=== PATIENT | female | born 1955 | race Caucasian/White ===

== ENCOUNTER 2018-05-24 13:32 | Emergency (ER) | payer OTHER ==
[2018-05-24] MEDS ORDERED: LEVO50TA5 PO (13:57)
[2018-05-24] MEDS ORDERED: SERT-138 PO (13:57)
[2018-05-24] MEDS ORDERED: ACYC400T PO (13:57)
[2018-05-24] MEDS ORDERED: D32000TA PO (13:57)
[2018-05-24] MEDS ORDERED: SIMV20TA2 PO (13:57)
[2018-05-24] MEDS ORDERED: METF-877 PO (13:57)
[2018-05-24] MEDS ORDERED: TOUJ1.2I SC (13:57)
[2018-05-24] MEDS ORDERED: MIDO2.5T PO (13:58)
[2018-05-24 14:24] LABS: BASO % 0.5 % (0.0-1.0); EOS # 0.2 10^3/uL (0.0-0.50); HEMATOCRIT 40.2 % (36.0-47.0); HEMOGLOBIN 13.3 g/dl (12.0-15.5); LYMPH # 1.7 10^3/uL (1.5-4.5); MEAN CORPUSCULAR HGB CONC 33.1 g/dl (32.0-36.5); MEAN CORPUSCULAR VOLUME 90.7 fl (80.0-96.0); MONO # 0.3 10^3/uL (0.0-0.8); MONO % 3.7 % (0.0-5.0); NEUTROPHILS # 6.4 10^3/uL (1.8-7.7); NEUTROPHILS % 73.5 % (36.0-66.0); PLATELET COUNT, AUTOMATED 242 10^3/uL (150-450); RED BLOOD COUNT 4.43 10^6/uL (4.00-5.40); WHITE BLOOD COUNT 8.7 10^3/uL (4.0-10.0)
[2018-05-24 14:38] LABS: ALT/SGPT 14 U/L (12-78); BILIRUBIN,DIRECT < 0.1 MG/DL (0.0-0.2); BILIRUBIN,TOTAL 0.3 MG/DL (0.2-1.0); BLOOD UREA NITROGEN 10 MG/DL (7-18); CALCIUM LEVEL 8.2 MG/DL (8.8-10.2); CARBON DIOXIDE LEVEL 26 MEQ/L (21-32); CHLORIDE LEVEL 98 MEQ/L (98-107); CK-MB VALUE MASS < 1.0 NG/ML (<3.6); CPK CREATINE PHOSPHOKINASE 40 U/L (26-192); CREATININE FOR GFR 0.99 MG/DL (0.55-1.30); GLOMERULAR FILTRATION RATE > 60.0 (>45); GLUCOSE, FASTING 472 MG/DL (70-100); SODIUM LEVEL 132 MEQ/L (136-145); TOTAL PROTEIN 6.8 GM/DL (6.4-8.2); TROPONIN I < 0.02 NG/ML (< 0.10)
[2018-05-24] MEDS ORDERED: NS 1,000 ML IV ONE (15:30)
[2018-05-24] MEDS ORDERED: MIDODRINE 5 MG TAB PO ONE (17:15)
[2018-05-24] MEDS ORDERED: LANTINJ4 SC (19:16)
[2018-05-24] MEDS ORDERED: LEVEMIR (INSULIN DETEMIR) 1 UNITS/0.01ML SC ONE (19:30)
[2018-05-24 19:47] VITALS: BP 156/82
--- NOTE | 2018-05-25 21:53 | ECGEPIP ---
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
== END 2018-05-24 19:47 | disposition home or self-care (01) ==
LOC: M ED 13:32
DX: E11.65 Type 2 diabetes mellitus with hyperglycemia (principal); I95.1 Orthostatic hypotension; R00.1 Bradycardia, unspecified; E55.9 Vitamin D deficiency, unspecified; E03.9 Hypothyroidism, unspecified; I10 Essential (primary) hypertension; E78.00 Pure hypercholesterolemia, unspecified; F32.9 Major depressive disorder, single episode, unspecified; F41.9 Anxiety disorder, unspecified; Z87.891 Personal history of nicotine dependence; Z79.84 Long term (current) use of oral hypoglycemic drugs; Z79.899 Other long term (current) drug therapy; Z88.2 Allergy status to sulfonamides

== ENCOUNTER 2019-02-08 13:56 | Inpatient (IN) | payer OTHER ==
[~2019-02-08] VITALS: Ht 160 cm; Wt 106.4 kg
[~2019-02-08 13:56] MED LIST: ACYC400T PO; D32000TA PO; LANTINJ4 SC; LEVO50TA5 PO; METF-877 PO; MIDO2.5T PO; SERT-138 PO; SIMV20TA22 PO; TOUJ1.2I SC
[2019-02-08] MEDS ORDERED: PARO20TA3 PO (14:19)
[2019-02-08] MEDS ORDERED: BASA100I SC (14:19)
[2019-02-08] MEDS ORDERED: NS 1,000 ML IV SCH (14:30)
--- NOTE | 2019-02-08 14:39 | REP ---
CT brain: 02/08/2019. Indication: Stroke. Comparison: None. Technique: Unenhanced axial CT images of the brain were obtained from skull base to vertex. Findings: There is no acute intracranial hemorrhage, acute cortical infarction, mass effect or hydrocephalous. Calcified vessel is noted within the deep right sylvian fissure. Mild diffuse volume loss is present. Patchy areas of cerebral hemisphere white matter hypoattenuation are present most consistent with chronic small vessel disease. Impression: No acute intracranial process. Sequelae of chronic microangiopathic ischemic disease and mild volume loss. Electronically Signed by Driss Galeano DO 02/08/2019 02:31 P
[2019-02-08 14:40] LABS: BASO % 0.3 % (0.0-1.0); EOS # 0.1 10^3/uL (0.0-0.5); EOS % 1.4 % (0.0-3.0); HEMATOCRIT 38.5 % (36.0-47.0); HEMOGLOBIN 12.4 g/dl (12.0-15.5); LYMPH % 22.9 % (24.0-44.0); MEAN CORPUSCULAR HEMOGLOBIN 29.5 pg (27.0-33.0); MEAN CORPUSCULAR HGB CONC 32.2 g/dl (32.0-36.5); MEAN CORPUSCULAR VOLUME 91.7 fl (80.0-96.0); MONO # 0.4 10^3/uL (0.0-0.8); MONO % 4.6 % (0.0-5.0); NEUTROPHILS # 6.2 10^3/uL (1.5-8.5); NEUTROPHILS % 70.6 % (36.0-66.0); PLATELET COUNT, AUTOMATED 281 10^3/uL (150-450); WHITE BLOOD COUNT 8.8 10^3/uL (4.0-10.0)
[2019-02-08] MEDS ORDERED: NS 1,000 ML IV ONE (14:45)
[2019-02-08] MEDS ORDERED: ATORVASTATIN 20 MG TAB PO ONE (14:45)
[2019-02-08] MEDS ORDERED: ASPIRIN 325 MG TAB PO ONE (14:45)
[2019-02-08 14:54] LABS: INR 1.1; PROTHROMBIN TIME 13.9 SECONDS (11.8-14.0)
[2019-02-08 15:23] LABS: ACETAMINOPHEN LEVEL < 2.0 UG/ML (10.0-30.0); ALBUMIN 3.1 GM/DL (3.2-5.2); ALT/SGPT 11 U/L (12-78); BILIRUBIN,DIRECT 0.1 MG/DL (0.0-0.2); BILIRUBIN,TOTAL 0.3 MG/DL (0.2-1.0); BLOOD UREA NITROGEN 17 MG/DL (7-18); CALCIUM LEVEL 8.6 MG/DL (8.8-10.2); CARBON DIOXIDE LEVEL 28 MEQ/L (21-32); CHLORIDE LEVEL 105 MEQ/L (98-107); CK-MB VALUE MASS < 1.0 NG/ML (<3.6); CPK CREATINE PHOSPHOKINASE 42 U/L (26-192); CREATININE FOR GFR 0.95 MG/DL (0.55-1.30); ETHYL ALCOHOL (ETHANOL) 0.006 % (0.000-0.010); GLOMERULAR FILTRATION RATE > 60.0 (>45); GLUCOSE, FASTING 160 MG/DL (70-100); MB/CK RELATIVE INDEX 2.38 (< OR =4); POTASSIUM SERUM 4.1 MEQ/L (3.5-5.1); SALICYLATE LEVEL < 1.7 MG/DL (5.0-30.0); SODIUM LEVEL 139 MEQ/L (136-145); TROPONIN I < 0.02 NG/ML (< 0.10)
--- NOTE | 2019-02-08 15:32 | REP ---
Single view chest: 02/08/2019. Indication: Altered mental status. Comparison: None. Findings: The lungs are clear. There is no pleural effusion or pneumothorax. The cardiac silhouette is at the upper limits of normal in size. Impression: No acute cardiopulmonary process. Electronically Signed by Driss Galeano DO 02/08/2019 03:22 P
[2019-02-08] MEDS ORDERED: ACETAMINOPHEN TAB 650MG DOSE (2X325MG) PO PRN (16:00)
[2019-02-08] MEDS ORDERED: DEXTROSE 50% 50 ML SYRINGE IV PRN (16:00)
[2019-02-08] MEDS ORDERED: GLUCAGON FOR INJ 1 MG VIAL (J1610) SC PRN (16:00)
[2019-02-08] MEDS ORDERED: GLUCOSE 4 GM CHEW TABLET PO PRN (16:00)
[2019-02-08] MEDS ORDERED: ADME100I2 SC (16:02)
--- NOTE | 2019-02-08 16:15 | HPEPDOC ---
General Date of Admission Feb 08, 2019 at 15:54 Date of Service: Feb 08, 2019 Chief Complaint The patient is a 63-year-old female Who presented to the emergency room with left-sided arm weakness and left facial droop History of Present Illness Patient is a 63-year-old female with a PMHx of IDDM2, DLP, Hypothyroidism, Hx of Asthma, Depression and GERD who presented to the emergency room with complaints of left arm weakness. Patient with that at 12:15 this afternoon, she was taking her friend to the hospital for an knee evaluation. Upon getting into the vehicle. Patient noted that her left arm was weaker and she had difficulty putting on seatbelt. Patient reported that she may have experienced some slurring speech, or change in her voice. However, she denied any difficulty with swallowing. She also denied any visual problems. Throughout the dry patients friend had noticed a left-sided facial droop. Upon arrival to destination patient had left leg weakness and EMS was called for further systems. Upon arrival to the emergency room at 3 PM telemedicine was contacted and robin carmichael already began to have improvement of her symptoms. Telemedicine with Dr. Nighat ROBERSON [facility] had recommended against TPA given that the patients symptoms were already resolving / near resolved. Hospital services contacted at 3:30 PM for further evaluation and treatment. Currently, patient reports a mild headache, but she denies nausea, vomiting, chest pain, shortness of breath, palpitations, abdominal pain, constipation, diarrhea, urinary discomfort or fevers and chills within the last 2 weeks. Patient reports that her appetite is normal, but does report a 5 pound weight loss that she attributes to increased activity / a busy lifestyle recently. Patient denies any prior history of stroke. There was concern for an GA in 2017, but a subsequent cardiac cath that was completed, did not reveal any evidence of infarction Home Medications Scheduled Insulin Glargine,Hum.rec.anlog (Basaglar Kwikpen U-100) 100 Unit/1 Ml Insuln.pen, 50 UNITS SC DAILY, (Reported) Levothyroxine Sodium (Levothyroxine Sodium) 50 Mcg Tab, 50 MCG PO DAILY, (Reported) Paroxetine HCl (Paroxetine HCl) 20 Mg Tablet, 20 M PO DAILY, (Reported) Simvastatin (Simvastatin) 20 Mg Tab, 1 TAB PO QPM, (Reported) Miscellaneous Medications Insulin Lispro (Admelog Solostar) 100 Unit/1 Ml Insuln.pen, 100 UNIT SC, (Repor austen) sliding scale Allergies Coded Allergies: Sulfa (Sulfonamide Antibiotics) (Verified Adverse Reaction, Mild, Headache, 05/24/18) Past Medical History Medical History IDDM2, DLP, Hypothyroidism, Hx of Asthma, Depression and GERD Surgical History Appendectomy 1965 Adhesion removal, 1990 Emergency 1982 Umbilical hernia repair 2 Right tibia-fibula ORIF Right ankle fracture ORIF Family History - Mother with a history of breast cancer and TIA - Father with a history of coronary artery disease Social History - Denies the use of illicit drugs; patient reports social alcohol use; patient quit smoking 3 years ago but was a smoker of 47 years at 1 PPD - Denies recent travel or sick contacts - Lives with her ex- - 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; 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 Review of Systems Other systems 10 point review of systems complete, all negative otherwise stated in HPI Vital Signs - Vitals: BP 144/65, HR 53, RR 16, Sat 98%RA, Temp 97.8F - General: Lying in bed, No acute distress, Speaking in full sentences, AAOx3 - HEENT: NC, AT, PERRLA, EOMI - CVS: RRR, +S1S2 - Lungs: Fair air entry bilaterally, No appreciable wheezing / rales / rhonchi - Abdomen: Soft, Non-distended, Non-tender - Extremities: No lower extremity edema, No calf tenderness - Neuro: 5/5 muscle strength at upper / lower extremities bilaterally, sensation symmetric bilaterally, no pronator drift appreciated, CN 2-12 grossly intact - Skin: No visible rashes Laboratory Data Labs 24H Laboratory Tests 2 02/08/19 14:23: Immature Granulocyte % (Auto) 0.2, Neutrophils (%) (Auto) 70.6H, Lymphocytes (%) (Auto) 22.9L, Monocytes (%) (Auto) 4.6, Eosinophils (%) (Auto) 1.4, Basophils (%) (Auto) 0.3, Neutrophils # (Auto) 6.2, Lymphocytes # (Auto) 2.0, Monocytes # (Auto) 0.4, Eosinophils # (Auto) 0.1, Basophils # (Auto) 0.0, Nucleated Red Blood Cells % (auto) 0.0, Prothrombin Time 13.9, Prothromb Time International Ratio 1.10, Activated Partial Thromboplast Time 27.0, Anion Gap 6L, Glomerular Filtration Rate > 60.0, Calcium Level 8.6L, Total Bilirubin 0.3, Direct Bilirubin 0.1, Aspartate Amino Transf (AST/SGOT) 11, Alanine Aminotransferase (ALT/SGPT) 11L, Alkaline Phosphatase 98, Total Creatine Kinase 42, Creatine Kinase MB < 1.0, Creatine Kinase MB Relative Index 2.38, Troponin I < 0.02, Total Protein 7.0, Albumin 3.1L, Albumin/Globulin Ratio 0.79L, Thyroid Stimulating Hormone (TSH) 1.040, Salicylates Level < 1.7L, Acetaminophen Level < 2.0L, Ethyl Alcohol Level 0.006 CBC/BMP Laboratory Tests 02/08/19 14:23 Plan / VTE VTE Prophylaxis Ordered?: Yes Plan Plan Left arm weakness and left facial droop - likely 2/2 TIA, less likely 2/2 CVA - Patient presented to the emergency room with complaints of left facial droop, left arm weakness and some degree of left leg weakness - Upon evaluation of the patient at 3:30 PM patient had resolution of her symptoms; strength appears symmetric and 5 out of 5 upper and lower extremities bilaterally and no facial droop is appreciated - Telemedicine with [facility]. Dr. Disla was completed at 3 PM - recommended against TPA given resolution of her symptoms - CT head 02/08: No acute intracranial process. Sequelae of chronic mi croangiopathic ischemic disease and mild volume loss. - Will get MRI / MRA / US carotid / ECHO / Lipid profile / Telemetry monitoring / Neuro checks - s/p ASA 325 and Atorvastatin 20 in ER - Will c/w ASA 81 daily and Atorvastatin 40 - Will defer neurologic consultation until imaging results IDDM2 - Patient reports that as an outpatient, she has been compliant with her medications and diet - She notes that her blood sugars have been relatively well-controlled - c/w ISS and Levemir for better glycemic coverage DLP - Will check lipid panel - c/w Atorvastatin 40; will adjust based on the above Hypothyroidism - c/w Levothyroxine Depression - c/w Paroxetine Hx of Asthma - CXR 02/08: No acute cardiopulmonary process. GERD - Patient reports that she does not take omeprazole for several months - Will resume Omeprazole now DVT prophylaxis - Will start Heparin TOSHIA PICKETT MD Feb 08, 2019 16:15
--- NOTE | 2019-02-08 18:19 | REP ---
MRI brain: 02/08/2019. Indication: Stroke. Comparison: None. Technique: Multiplanar short and long TR sequences of the brain were performed without IV Gadolinium. Findings: There are a few small foci of restricted diffusion within the right temporal parietal region without mass effect or hemorrhage. There are scattered small foci of elevated T2 signal throughout the cerebral hemisphere white matter and mid solis most consistent with chronic small vessel disease. Mild diffuse volume loss is present. The midline structures, and craniocervical junction are unremarkable with the exception of a partially empty sella which is nonspecific. The large intracranial flow voids are unremarkable. Impression: Multiple small punctate acute right temporal parietal / MCA infarctions without mass effect or hemorrhage. Electronically Signed by Driss Galeano DO 02/08/2019 06:11 P
--- NOTE | 2019-02-08 18:21 | REP ---
Intracranial MRA: 02/08/2019. Indication: Stroke. Comparison: None. Technique: 3-D [id number] imaging of the intracranial vessels were performed with rotational 3-D images provided. Findings: There is no intracranial high-grade stenosis, vessel occlusion, aneurysm or AVM. Impression: No intracranial high-grade stenosis or vessel occlusion. Electronically Signed by Driss Galeano DO 02/08/2019 06:12 P
[2019-02-08 18:22] VITALS: BP 146/70; PULSE 54
[2019-02-08] MEDS: HumaLOG INSULIN (NovoLOG) PER UNIT SC SCH ×2 (19:00→21:00)
[2019-02-08 20:00] VITALS: BP 146/66
[2019-02-08] MEDS: HEPARIN SOD (PORCINE) 5000 UNITS/ML VIAL SC SCH (21:45)
[2019-02-09] VITALS: BP 115/56
[2019-02-09 04:00] VITALS: BP 126/68
[2019-02-09] MEDS: HEPARIN SOD (PORCINE) 5000 UNITS/ML VIAL SC SCH ×3 (06:00→21:46)
[2019-02-09] MEDS: LEVOTHYROXINE 50MCG TABLET (0.05MG) PO SCH (07:08)
[2019-02-09] MEDS: HumaLOG INSULIN (NovoLOG) PER UNIT SC SCH ×4 (07:30→20:37)
[2019-02-09 07:35] LABS: BASO % 0.3 % (0.0-1.0); EOS # 0.2 10^3/uL (0.0-0.5); EOS % 2.5 % (0.0-3.0); HEMATOCRIT 40.4 % (36.0-47.0); HEMOGLOBIN 12.6 g/dl (12.0-15.5); LYMPH # 2.5 10^3/uL (1.5-5.0); MEAN CORPUSCULAR HEMOGLOBIN 29.3 pg (27.0-33.0); MEAN CORPUSCULAR HGB CONC 31.2 g/dl (32.0-36.5); MONO # 0.3 10^3/uL (0.0-0.8); MONO % 3.9 % (0.0-5.0); NEUTROPHILS # 5.7 10^3/uL (1.5-8.5); PLATELET COUNT, AUTOMATED 283 10^3/uL (150-450); WHITE BLOOD COUNT 8.8 10^3/uL (4.0-10.0)
[2019-02-09 08:00] VITALS: BP 135/83
[2019-02-09 08:02] LABS: BLOOD UREA NITROGEN 12 MG/DL (7-18); CALCIUM LEVEL 8.4 MG/DL (8.8-10.2); CARBON DIOXIDE LEVEL 28 MEQ/L (21-32); CHLORIDE LEVEL 108 MEQ/L (98-107); CHOLESTEROL LEVEL 156 MG/DL (<200); CHOLESTEROL RISK RATIO 4.588 (<5); CREATININE FOR GFR 0.82 MG/DL (0.55-1.30); GLOMERULAR FILTRATION RATE > 60.0 (>45); GLUCOSE, FASTING 83 MG/DL (70-100); HDL CHOLESTEROL 34 MG/DL (>40); LDL CHOLESTEROL 103 MG/DL (<100); MAGNESIUM LEVEL 2.3 MG/DL (1.8-2.4); NON-HDL-C 122 MG/DL; POTASSIUM SERUM 3.8 MEQ/L (3.5-5.1); SODIUM LEVEL 140 MEQ/L (136-145); TRIGLYCERIDES LEVEL 97 MG/DL (<150)
--- NOTE | 2019-02-09 08:04 | ECGEPIP ---
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
[2019-02-09] MEDS: OMEPRAZOLE 20 MG CAP PO SCH (08:16)
[2019-02-09] MEDS: PARoxetine 20 MG TAB PO SCH (08:16)
[2019-02-09] MEDS: ATORVASTATIN 20 MG TAB PO SCH (08:16)
[2019-02-09] MEDS: ASPIRIN 81 MG CHEW TABLET PO SCH (08:16)
[2019-02-09] MEDS: NS 1,000 ML IV SCH ×2 (08:24→20:37)
[2019-02-09] MEDS ORDERED: LEVEMIR (INSULIN DETEMIR) 1 UNITS/0.01ML SC SCH (09:00)
--- NOTE | 2019-02-09 09:45 | REP ---
DUPLEX CAROTID SONOGRAPHY: HISTORY: TIA/CVA. FINDINGS: Antegrade flow was observed in both vertebral arteries. RIGHT CAROTID: Right common carotid artery shows minimal diffuse intimal thickening. There is mild mixed plaquing in the bulb and proximal ICA on two-dimensional scanning. Color flow and spectral Doppler interrogation demonstrate increased velocity with systole in the external carotid artery and very slightly elevated systolic velocity in the ICA. Velocity Chart Right Carotid: PSV EDV Right CCA 75 cm/s Right ICA 133 cm/s 38 cm/s Right ECA 247 cm/s Right ICA/CCA ratio 1.8. IMPRESSION: 0 to 50% category narrowing by Doppler velocity criteria, probably near the upper end of this range. LEFT CAROTID: Left common carotid artery is unremarkable. There is mixed plaquing in the bulb and proximal ICA. Color flow and spectral Doppler interrogation are unremarkable on the left. Velocity Chart Left Carotid: PSV EDV Left CCA 85 cm/s Left ICA 89 cm/s 25 cm/s Left ECA 108 cm/s Left ICA/CCA ratio normal 1.05 IMPRESSION: Less than 50% category narrowing in the ICA on the left side. Electronically Signed by Tomás Haskins MD 02/09/2019 05:49 P
[2019-02-09 12:00] VITALS: BP 137/63
--- NOTE | 2019-02-09 13:48 | IPNPDOC ---
Text Note Date of Service The patient was seen on 02/09/19. NOTE Subjective: Patient is a 63-year-old female with a PMHx of IDDM2, DLP, Hypothyroidism, Hx of Asthma, Depression and GERD who presented to the emergency room with complaints of left arm weakness. Patient was admitted to hospitalist service for suspected stroke/TIA. No TPA was given. After consultation with telemedicine Dr. Disla had recommended against it - given symptom resolution. Patient was seen and examined at the bedside. . Currently, patient reports that her symptoms have resolved and denies any sensory deficit or weakness of the left side of her body. She denies chest pain, shortness of breath or palpitations. Denies nausea, vomiting, abdominal pain or diarrhea. Objective: Vitals (See below) General: Lying in bed, no acute distress, comfortable, AAOx3 HEENT: NC, AT CVS: RRR, +S1S2 Lungs: Fair air entry b/l, no appreciable wheezing / rhonchi / rales Abdomen: Soft, ND, NT Extremities: - Edema, - Calf tenderness Neuro: Strength of 5/5 at upper / lower extremities bilaterally Assessment and plan: Left arm weakness and left facial droop - likely 2/2 TIA, less likely 2/2 CVA - Patient presented to the emergency room with complaints of left facial droop, left arm weakness and some degree of left leg weakness - Upon evaluation of the patient at 3:30 PM patient had resolution of her symptoms; strength appears symmetric and 5 out of 5 upper and lower extremities bilaterally and no facial droop is appreciated - Yesterday evening at around 6 PM patient had recurrence of her symptoms; however patient was already outside of the TPA window - Telemedicine with [facility]. Dr. Disla was completed at 3 PM - recommended against TPA given resolution of her symptoms - CT head 02/08: No acute intracranial process. Sequelae of chronic microangiopathic ischemic disease and mild volume loss. - MRI Head 02/08: Multiple small punctate acute right temporal parietal / MCA infarctions without mass effect or hemorrhage. - MRA head 02/08: No intracranial high-grade stenosis or vessel occlusion. - Carotid duplex US 02/08: Less than 50% category narrowing in the ICA on the left side; 0 to 50% category narrowing by Doppler velocity criteria, probably near the upper end of this range on right side. - ECHO pending - c/w Telemetry monitoring / Neuro checks - s/p ASA 325 and Atorvastatin 20 in ER - c/w ASA 81 daily and Atorvastatin 40 - Neurology has been called on consultation; appreciate their input IDDM2 - Patient reports that as an outpatient, she has been compliant with her medications and diet - She notes that her blood sugars have been relatively well-controlled - c/w ISS and Levemir for better glycemic coverage DLP - Lipid panel noted - c/w Atorvastatin Hypothyroidism - c/w Levothyroxine Depression - c/w Paroxetine Hx of Asthma - CXR 02/08: No acute cardiopulmonary process. GERD - Patient reports that she does not take omeprazole for several months - c/w Omeprazole now DVT prophylaxis - c/w Heparin VS,Fishbone, I+O VS, Fishbone, I+O Laboratory Tests 02/08/19 14:23 02/09/19 07:15 Vital Signs Date Time Temp Pulse Resp B/P (MAP) Pulse Ox O2 Delivery O2 Flow Rate FiO2 02/09/19 08:00 96.6 50 17 135/83 (100) 93 Room Air I&O- Last 24 Hours up to 6 AM 02/09/19 06:00 Intake Total 1840 ml Output Total 525 ml Balance 1315 ml TOSHIA PICKETT MD Feb 09, 2019 13:47
[2019-02-09 16:00] VITALS: BP 158/69
--- NOTE | 2019-02-09 17:14 | ECGEPIP ---
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
[2019-02-09 20:00] VITALS: BP 120/60
--- NOTE | 2019-02-09 21:52 | ECHO ---
DATE OF PROCEDURE: 02/09/2019 Date of : 1955 Age: 63 REFERRING PHYSICIAN: King Ceron MD PATIENT LOCATION: Room 3229 REASON FOR EXAM: Transient ischemic attack (TIA). 2D MEASUREMENTS: IVS: 1.1 cm LV: 4.4 cm LVPW: 1.1 cm LA: 3.1 cm Aorta: 2.6 IVC: 1.5 cm DOPPLER MEASUREMENTS: Peak velocity across the aortic valve: 1.7 m/s Peak velocity across the LVOT: 0.9 m/s Mitral E: 0.82, Mitral A: 0.69 with a ratio of 1.2 Maximum tricuspid valve velocity: 2.4 m/s 2D COMMENTS: 1. Normal left ventricular size, wall thickness, and normal global left ventricular systolic function. The estimated left ventricular systolic ejection fraction is 60-65%. 2. Normal left atrium. Normal right atrium and right ventricle. 3. The atrial septum appeared to be normal without evidence of defect or shunt. 4. Normal aortic root. 5. Trace to small pericardial effusion noted around the heart, no evidence of cardiac tamponade. 6. Mildly calcified aortic valve with normal leaflet excursion. Minimally calcified mitral annulus with normal anterior mitral valve leaflet motion. Normal tricuspid valve and pulmonic valve. The proximal pulmonary artery branches were not well visualized. 7. The inferior vena cava was normal in size, central venous pressure is most likely normal. DOPPLER: Only mild tricuspid regurgitation detected. The calculated pulmonary artery systolic pressure varies between 30-40 mmHg. Assessment of the left ventricular diastolic function appeared to be normal. IMPRESSION 1. Normal global left ventricular systolic and diastolic function. 2. Aortic valve sclerosis with trivial aortic stenosis, but no aortic regurgitation. 3. Mild tricuspid regurgitation with mild pulmonary hypertension. 4. Trace to small pericardial effusion, no evidence of cardiac tamponade.
[2019-02-10 04:00] VITALS: BP 138/68
[2019-02-10] MEDS: LEVOTHYROXINE 50MCG TABLET (0.05MG) PO SCH (05:36)
[2019-02-10] MEDS: HEPARIN SOD (PORCINE) 5000 UNITS/ML VIAL SC SCH (05:36)
[2019-02-10 05:59] LABS: BASO % 0.3 % (0.0-1.0); EOS # 0.2 10^3/uL (0.0-0.5); EOS % 2.7 % (0.0-3.0); HEMOGLOBIN 11.9 g/dl (12.0-15.5); LYMPH # 2.4 10^3/uL (1.5-5.0); LYMPH % 27.6 % (24.0-44.0); MEAN CORPUSCULAR HEMOGLOBIN 29.1 pg (27.0-33.0); MEAN CORPUSCULAR HGB CONC 31.3 g/dl (32.0-36.5); MEAN CORPUSCULAR VOLUME 92.9 fl (80.0-96.0); MONO # 0.4 10^3/uL (0.0-0.8); MONO % 4.5 % (0.0-5.0); NEUTROPHILS # 5.6 10^3/uL (1.5-8.5); NEUTROPHILS % 64.6 % (36.0-66.0); PLATELET COUNT, AUTOMATED 264 10^3/uL (150-450); RED BLOOD COUNT 4.09 10^6/uL (4.00-5.40); WHITE BLOOD COUNT 8.7 10^3/uL (4.0-10.0)
[2019-02-10 06:08] LABS: BLOOD UREA NITROGEN 9 MG/DL (7-18); CARBON DIOXIDE LEVEL 27 MEQ/L (21-32); CHLORIDE LEVEL 109 MEQ/L (98-107); CREATININE FOR GFR 0.72 MG/DL (0.55-1.30); GLOMERULAR FILTRATION RATE > 60.0 (>45); GLUCOSE, FASTING 60 MG/DL (70-100); MAGNESIUM LEVEL 2.2 MG/DL (1.8-2.4); POTASSIUM SERUM 3.8 MEQ/L (3.5-5.1); SODIUM LEVEL 141 MEQ/L (136-145)
[2019-02-10] MEDS: HumaLOG INSULIN (NovoLOG) PER UNIT SC SCH (07:19)
[2019-02-10 08:00] VITALS: BP 118/70
--- NOTE | 2019-02-10 08:03 | CR ---
DATE OF CONSULTATION: 02/09/2019 REFERRING PROVIDER: Dr. King Ceron REASON FOR CONSULTATION: Acute stroke. HISTORY OF PRESENT ILLNESS: The patient is a 63-year-old, right handed female who has been admitted to [facility] with acute stroke. The patient yesterday around noon time started to notice left arm weakness and clumsiness. The patient helped her sister get to medical appointments and the patient has had difficulty holding onto objects with the left hand. She sought medical attention at the time and was brought to the hospital. The patient was noted on ER information that her symptoms were improving. Telemedicine through the St[facility] at [facility] was contacted, Dr. Disla, who recommended against providing the patient tPA since her symptoms seemed to be improving. The patient was admitted in the afternoon. Later in the evening around 5:00 p.m., the patient started having recurrence of symptoms. MRI was obtained revealing multiple small areas of acute infarct. The patient was placed on aspirin 81 mg daily. She is outside the wind of tPA given the onset of symptoms of a stroke occurring around noon time. The patient has been placed on a statin as well. At the present time, she does have some weakness of the left upper extremity, but feels that she is getting stronger. She denies any headache at the time. ALLERGIES: - SULFA PAST MEDICAL HISTORY: Insulin dependent type 2 diabetes, hyperlipidemia, hypothyroidism, history of asthma, depression, gastroesophageal reflux disease (GERD). PAST SURGICAL HISTORY: Appendectomy in 1965. Adhesion removal in 1990. Emergency in 1982. Umbilical hernia repair. Right tibia-fibular ORIF. Right ankle fracture ORIF. FAMILY HISTORY: Mother with transient ischemic attack (TIA). SOCIAL HISTORY: The patient is a former smoker, quit 3 years ago. Denies use of any tobacco, alcohol or illicit drugs presently. REVIEW OF SYSTEMS: 14-point review of systems obtained and is negative except as per history of present illness (HPI). MEDICATIONS: - aspirin 81 mg by mouth daily - Lipitor 40 mg by mouth daily - Paxil 20 mg by mouth daily - Prilosec 20 mg by mouth daily - Synthroid 50 mcg by mouth daily - subcutaneous heparin 5000 every 8 hours - Levemir 36 units daily PHYSICAL EXAMINATION: Blood pressure 137/63, pulse rate 48, respiratory rate is 18, temperature is 96.5 degrees Fahrenheit, and oxygenation 96% on room air. The patient is awake, alert, oriented to person, place and time. Speech, language, comprehension and repetition are intact. Pupils are 3 mm round, reactive to light. Extraocular movements intact in all directions without nystagmus. Sensation V1, V2 and V3 is intact to light touch. No facial asymmetry to activation. Palate elevates symmetrically. Tongue is midline. No weakness of sternocleidomastoids bilaterally. There was no pronator drift. Strength is 5/5 including the right upper extremity, deltoid, biceps, triceps, 4+/5 including the left deltoid, biceps, triceps. Iliopsoas, quadriceps appear to be normal in strength including anterior tibialis. Sensory is intact to light touch in all four extremities. Coordination is without any ataxia or dysmetria. Romberg testing deferred. Gait deferred. ASSESSMENT: Acute ischemic stroke of the right temporal parietal lobe with left-sided hemiparesis. PLAN: Continue aspirin 81 mg by mouth daily and Lipitor 40 mg by mouth daily. Continue telemetry monitoring. Make sure to obtain echocardiogram. Physical therapy (PT)/occupational therapy (OT) evaluation. The patient to follow up with [facility] as an outpatient. Optimize hyperlipidemia and diabetes.
[2019-02-10] MEDS: NS 1,000 ML IV SCH (08:15)
[2019-02-10] MEDS ORDERED: OMEP-218 PO (08:22)
[2019-02-10] MEDS ORDERED: ASPI81CH8 PO (08:22)
[2019-02-10] MEDS ORDERED: ATOR40TA75 PO (08:22)
[2019-02-10] MEDS ORDERED: BASA100I SC (08:22)
[2019-02-10] MEDS: PARoxetine 20 MG TAB PO SCH (08:49)
[2019-02-10] MEDS: ATORVASTATIN 20 MG TAB PO SCH (08:50)
[2019-02-10] MEDS: ASPIRIN 81 MG CHEW TABLET PO SCH (08:50)
[2019-02-10] MEDS: OMEPRAZOLE 20 MG CAP PO SCH (08:50)
[2019-02-10] MEDS ORDERED: LEVEMIR (INSULIN DETEMIR) 1 UNITS/0.01ML SC SCH (09:00)
--- NOTE | 2019-02-10 10:28 | DS.PDOC ---
Discharge Summary General Date of Admission Feb 08, 2019 at 15:54 Date of Discharge 02/10/2019 Discharge Summary PROCEDURES PERFORMED DURING STAY: [None]. ADMITTING DIAGNOSES / DISCHARGE DIAGNOSES: Left arm weakness and left facial droop - likely 2/2 CVA IDDM2 DLP Hypothyroidism Depression Hx of Asthma GERD DVT prophylaxis COMPLICATIONS/CHIEF COMPLAINT: Left facial droop and Left arm weakness HISTORY OF PRESENT ILLNESS: Patient is a 63-year-old female with a PMHx of IDDM2, DLP, Hypot hyroidism, Hx of Asthma, Depression and GERD who presented to the emergency room with complaints of left arm weakness. Patient was admitted to hospitalist service for suspected stroke/TIA. No TPA was given. After consultation with telemedicine Dr. Disla had recommended against it - given symptom resolution. HOSPITAL COURSE: Left arm weakness and left facial droop - likely 2/2 CVA - Patient presented to the emergency room with complaints of left facial droop, left arm weakness and some degree of left leg weakness - Upon evaluation of the patient at 3:30 PM patient had resolution of her sy mptoms; strength appears symmetric and 5 out of 5 upper and lower extremities bilaterally and no facial droop is appreciated - 02/08 evening at around 6 PM patient had recurrence of her symptoms; however patient was already outside of the TPA window - Telemedicine with DA salcido. Dr. Disla was completed at 3 PM - recommended against TPA given resolution of her symptoms - CT head 02/08: No acute intracranial process. Sequelae of chronic microangiopathic ischemic disease and mild volume loss. - MRI Head 02/08: Multiple small punctate acute right temporal parietal / MCA infarctions without mass effect or hemorrhage. - MRA head 02/08: No intracranial high-grade stenosis or vessel occlusion. - Carotid duplex US 02/08: Less than 50% category narrowing in the ICA on the left side; 0 to 50% category narrowing by Doppler velocity criteria, probably near the upper end of this range on right side. - ECHO 02/09/19: Normal EF / Diastolic function, AV sclerosis, trivial , mild TR, mild pulmonary HTN, trace-small pericardial effusion / no tamponade - c/w Telemetry monitoring / Neuro checks - s/p ASA 325 and Atorvastatin 20 in ER - c/w ASA 81 daily and Atorvastatin 40 - Neurology has been called on consultation; appreciate their input - Patient with outpatient follow-up with her primary care provider and Dr. Uribe within 7 days IDDM2 - Patient reports that as an outpatient, she has been compliant with her medications and diet - She notes that her blood sugars have been relatively well-controlled - This morning. Patient blood sugar was noted to be at 60; but the course of y esterday. Her blood sugars were relatively well controlled - Will reduce dose of Levemir to prevent hypoglycemia - c/w ISS and adjust dose of Levemir for better glycemic coverage DLP - Lipid panel noted - c/w Atorvastatin Hypothyroidism - c/w Levothyroxine Depression - c/w Paroxetine Hx of Asthma - CXR 02/08: No acute cardiopulmonary process. GERD - Patient reports that she does not take omeprazole for several months - c/w Omeprazole now DVT prophylaxis - c/w Heparin DISCHARGE MEDICATIONS: Please see below. ALLERGIES: Please see below. PHYSICAL EXAMINATION ON DISCHARGE: Vitals (See below) General: Lying in bed, no acute distress, comfortable, AAOx3 HEENT: NC, AT CVS: RRR, +S1S2 Lungs: Fair air entry b/l, no appreciable wheezing / rhonchi / rales Abdomen: Soft, ND, NT Extremities: - Edema, - Calf tenderness Neuro: Strength of 5/5 at upper / lower extremities at R, 4+/5 at left upper extremity, 5/5 at left lower extremity LABORATORY DATA: Please see below. ACTIVITY: [As tolerated]. DISCHARGE PLAN: Home DISPOSITION: Follow up with Damián Cardenas and Dr. Uribe within 7 days. Remain compliant with treatment plan and medications Return to the ER if you experience any problems DISCHARGE CONDITION: [Stable]. TIME SPENT ON DISCHARGE: 40 minutes Vital Signs/I&Os Vital Signs Date Time Temp Pulse Resp B/P (MAP) Pulse Ox O2 Delivery O2 Flow Rate FiO2 02/10/19 04:00 96.8 55 18 138/68 (91) 99 Room Air I&O- Last 24 Hours up to 6 AM 02/10/19 06:00 Intake Total 1500 ml Output Total 1300 ml Balance 200 ml Laboratory Data Labs 24H Laboratory Tests 2 02/09/19 12:15: Bedside Glucose (Misc Panel) 164H 02/09/19 17:03: Bedside Glucose (Misc Panel) 76L 02/09/19 20:36: Bedside Glucose (Misc Panel) 66L 02/09/19 21:56: Bedside Glucose (Misc Panel) 86 02/10/19 05:15: Immature Granulocyte % (Auto) 0.3, Neutrophils (%) (Auto) 64.6, Lymphocytes (%) (Auto) 27.6, Monocytes (%) (Auto) 4.5, Eosinophils (%) (Auto) 2.7, Basophils (%) (Auto) 0.3, Neutrophils # (Auto) 5.6, Lymphocytes # (Auto) 2.4, Monocytes # (Auto) 0.4, Eosinophils # (Auto) 0.2, Basophils # (Auto) 0.0, Nucleated Red Blood Cells % (auto) 0.0, Anion Gap 5L, Glomerular Filtration Rate > 60.0, Calcium Level 8.0L, Magnesium Level 2.2 02/10/19 06:53: Bedside Glucose (Misc Panel) 70L CBC/BMP Laboratory Tests 02/10/19 05:15 FSBS Laboratory Tests Test 02/09/19 12:15 02/09/19 17:03 02/09/19 20:36 02/09/19 21:56 Range/Units Bedside Glucose (Misc Panel) 164 76 66 86 80-115 MG/DL Test 02/10/19 06:53 Range/Units Bedside Glucose (Misc Panel) 70 80-115 MG/DL Discharge Medications Scheduled Aspirin (Children's Aspirin) 81 Mg Tab.chew, 81 MG PO DAILY Atorvastatin Calcium (Atorvastatin Calcium) 40 Mg Tablet, 1 TAB PO DAILY Insulin Glargine,Hum.rec.anlog (Basaglar Kwikpen U-100) 100 Unit/1 Ml Insuln.pen, 25 UNITS SC DAILY Insulin Lispro (Admelog Solostar) 100 Unit/1 Ml Insuln.pen, 1 DOSE SC WM, (Reported) SLIDING SCALE Levothyroxine Sodium (Levothyroxine Sodium) 50 Mcg Tab, 50 MCG PO DAILY, (Reported) Omeprazole (Omeprazole) 20 Mg Capsule.dr, 20 MG PO DAILY Paroxetine HCl (Paroxetine HCl) 20 Mg Tablet, 20 M PO DAILY, (Reported) Allergies Coded Allergies: Sulfa (Sulfonamide Antibiotics) (Verified Adverse Reaction, Mild, Headache, 05/24/18) TOSHIA PICKETT MD Feb 10, 2019 10:28
== END 2019-02-10 12:16 | disposition home or self-care (01) | DRG 45 ==
LOC: M ED 13:56 → EDBD 13:56 → EDSEX 13:56 → M ED INP 15:54 → M PCU 18:01
PROVIDERS: ADMIT Internal Medicine; ATTEND Internal Medicine
DX: I63.9 Cerebral infarction, unspecified (principal); I69.352 Hemiplegia and hemiparesis following cerebral infarction affecting left dominant side; E11.9 Type 2 diabetes mellitus without complications; E03.9 Hypothyroidism, unspecified; F32.9 Major depressive disorder, single episode, unspecified; J45.909 Unspecified asthma, uncomplicated; K21.9 Gastro-esophageal reflux disease without esophagitis; Z79.4 Long term (current) use of insulin; Z79.899 Other long term (current) drug therapy; Z88.2 Allergy status to sulfonamides; E78.5 Hyperlipidemia, unspecified

== ENCOUNTER → 2019-11-24 | Outpatient (CLI) | payer MEDICARE, MEDICAID ==
[~2019-11-24] MED LIST changes: +ADME100I2 SC; +ASPI81CH8 PO; +ATOR40TA75 PO; +BASA100I SC; +OMEP-218 PO; +PARO20TA3 PO
--- NOTE | 2019-12-01 06:29 | REP ---
DUPLEX CAROTID SONOGRAPHY HISTORY: Stenosis. COMPARISON STUDY: 02/09/2019. FINDINGS: Antegrade flow is observed in both vertebral arteries. RIGHT CAROTID: The right common carotid artery shows mild diffuse intimal thickening. There is mixed plaquing in the bulb, proximal internal carotid artery (ICA), and proximal external carotid artery (ECA) on two-dimensional scanning. Stenotic flow velocities are observed in the external carotid artery, but normal waveforms and velocities are again observed in the ICA. VELOCITY CHART RIGHT CAROTID PSV EDV CCA 77 cm/s ICA 97 cm/s 24 cm/s ECA 194 cm/s ICA/CCA ratio 1.27 IMPRESSION: Less than 50% category narrowing in the right internal carotid artery (ICA) by Doppler velocity criteria. Doppler velocities are a little slower than those recorded on the previous study of 02/09/2019. LEFT CAROTID: The left common carotid artery shows diffuse intimal thickening. There is mixed plaquing in the bulb, proximal internal carotid artery (ICA), and proximal external carotid artery (ECA). Color flow and spectral Doppler interrogation are unremarkable and unchanged. VELOCITY CHART LEFT CAROTID PSV EDV CCA 82 cm/s ICA 75 cm/s 21 cm/s ECA 98 cm/s ICA/CCA ratio 0.9 (normal) IMPRESSION: Less than 50% category narrowing in the left internal carotid artery (ICA). Velocities have not changed significantly since the prior study on the left. MTDD
== END ==
LOC: M RAD 13:14
PROVIDERS: ATTEND Surgery Vascular Surgery
DX: I65.23 Occlusion and stenosis of bilateral carotid arteries (principal)